=== PATIENT | female | born 1970 ===

== ENCOUNTER 2022-04-04 07:00 | Outpatient (CLI) | payer OTHER ==
--- NOTE | 2022-04-04 14:32 | XRAY Report ---
PROCEDURE: Toe(s) RT INDICATIONS: PAIN IN FOURTH TOE OF RIGHT FOOT TECHNIQUE: 3 views of the fourth toe(s) acquired. COMPARISON: None FINDINGS: Bones: Old healed fracture involving right fifth metatarsal neck is seen with chronic-appearing defor mity. Possible post surgical changes are noted involving fifth proximal phalangeal head. No acute for skull fracture or dislocation. No suspicious bony lesions. Soft tissues: No suspicious soft tissue densities. IMPRESSION: No acute fourth toe fracture or dislocation. Old healed fracture involving fifth metatarsal neck and likely postsurgical changes involving fifth proximal phalangeal head. Reviewed by: Jaspal Olivares MD on 04/04/2022 2:31 PM PST Approved by: Jaspal Olivares MD on 04/04/2022 2:31 PM PST Station ID: [id number]
== END 2022-04-04 23:59 | disposition home or self-care (01) ==
LOC: DI.S 07:00
PROVIDERS: ATTEND Physician Assistant Medical
DX: M79.674 Pain in right toe(s) (principal); M20.5X1 Other deformities of toe(s) (acquired), right foot